=== PATIENT | male | born 1950 | race Caucasian/White ===

== ENCOUNTER 2022-06-08 09:19 | Emergency (ER) | payer OTHER, SELFPAY ==
--- NOTE | ~2022-06-08 | XR_ITS ---
EXAMINATION: XR foot RT min 3V DATE: 06/08/2022 09:47 INDICATION: Pain along the arch of the right foot post fall TECHNIQUE: Dorsoplantar, two oblique and lateral views of the right foot were obtained. COMPARISON: None. FINDINGS: Pes planus and hindfoot valgus. Small nondisplaced avulsion fracture at the distal tip of the medial malleolus. Heterotopic ossification along the dorsal aspect of the hindfoot. Polyarticular osteoarthr itis, severe at the third distal interphalangeal joint, moderate severity at the first metatarsophala ngeal joint and mild at the right ankle and remaining joints of the right foot. A few a few subarticu lar lucencies with thin sclerotic margins at the base of the fifth metatarsal, at the navicula, anter ior process of the calcaneus which could represent a osteoarthritis related geodes or chronic erosion s in the setting of gout. Moderate-sized plantar calcaneal spur. IMPRESSION: 1. Small nondisplaced likely avulsion fracture at the distal tip of the medial malleolus. 2. Pes planus and hindfoot valgus. 3. 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 4. The prominent subarticular lucencies with sclerotic margins in the mid and hindfoot which could re present osteoarthritis related geodes or chronic erosions in the setting of gout. Reviewed, dictated and finalized at location A. S [employer] IMPRESSION: 1. Small nondisplaced likely avulsion fracture at the distal tip of the medial malleolus. 2. Pes planus and hindfoot valgus. 3. 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 4. The prominent subarticular lucencies with sclerotic margins in the mid and h indfoot which could represent osteoarthritis related geodes or chronic erosions in the setting of gout.
--- NOTE | ~2022-06-08 | XR_ITS ---
Right Knee Technique: AP, lateral, and oblique views were obtained. Clinical History: Pain Findings: No fracture or dislocation is seen. Moderate tricompartmental degenerative changes present, probably worst in the lateral compartment. There is a probable 2.1 cm ovoid loose body at the milker machine ior aspect of the joint. No joint effusion is seen. Impression: Moderate tricompartmental degenerative change, with probable 2.1 cm posterior intra-articular loose b jennifer. Reviewed, dictated and finalized at location [employer] Impression: Moderate tricompartmental degenerative change, with probable 2.1 cm posterior i ntra-articular loose body.
--- NOTE | 2022-06-08 09:30 | ED.LOWEXIN ---
HPI - Extremity Injury (Lower) General Chief Complaint: Extremity Injury, Lower Stated Complaint: R knee pain, slipped on ice Time Seen by Provider: 06/08/22 09:25 History of Present Illness HPI Narrative: Patient is a 72-year-old male here for evaluation of left knee pain after a fall today. Patient states he slipped on ice and landed with his knee in flexion on the ground. He has been able to stand and walk since the accident but just notes it is painful. No head injury or loss of consciousness. He denies any numbness or tingling in the leg. He has not attempted any medication for pain. Patient is concerned because he is scheduled to get his left knee replaced in July. Related Data Allergies Allergy/AdvReac Type Severity Reaction Status Date / Time Penicillins Allergy Mild rash Unverified 06/10/14 10:20 Review of Systems Review of Systems: Gen.: Denies fevers or chills Eyes: Denies eye pain or visual change ENT: Denies congestion Respiratory: Denies shortness of breath or cough CV: Denies chest pain or palpitations GI: Denies abdominal pain nausea, emesis or diarrhea denies burning, urgency, frequency or hematuria Musculoskeletal: Reports left knee pain and foot pain. Neuro: Denies numbness, tingling, weakness or focal weakness Skin: Denies rash Except as documented, all other systems reviewed and negative Exam Narrative: Gen: Alert, oriented, no acute distress Eyes: EOMI, no icterus Pulm: Respirations even and unlabored, symmetric thorax expansion, no audible stridor or visible cyanosis CV: Regular rate per telemetry GI: No distension, no voluntary/involuntary guarding Neuro: AOx4, moves all extremities without apparent difficulty or weakness, follows commands Skin: No jaundice, no visible bruising, rashes, lesions or wounds on exposed skin MSK: Tenderness to palpation along left patella with no obvious deformity or overlying swelling. Tender to palpation along the arch of the left foot. No tenderness to palpation along medial or lateral malleoli. No tenderness palpation along tibia or fibula. No tenderness to palpation along left hip. Patient able to stand for several seconds without pain. Psych: Normal mood/affect, insight/judgement good, adequate fund of knowledge, recent/remote memory intact Course Vital Signs Vital signs: Vital Signs Temperature 97.7 F 06/08/22 09:48 Pulse Rate 103 H 06/08/22 09:48 Respiratory Rate 18 06/08/22 09:48 Blood Pressure 137/76 06/08/22 09:48 Pulse Oximetry 99 06/08/22 09:48 Oxygen Delivery Room Air 06/08/22 09:48 Temperature 97.7 F 06/08/22 09:48 Pulse Rate 103 H 06/08/22 09:48 Respiratory Rate 18 06/08/22 09:48 Blood Pressure 137/76 06/08/22 09:48 Pulse Oximetry 99 06/08/22 09:48 Oxygen Delivery Room Air 06/08/22 09:48 MDM - Extremity Injury (Lower) MDM Narrative Medical decision making narrative: 72-year-old male here for evaluation of knee pain and foot pain after a fall on ice today. His vital signs are normal and he is nontoxic-appearing, has a small abrasion to his right knee with slight bony tenderness to palpation in the area. Initially complaining of some foot pain but denies this after waiting in the ED. Plan films of the knee without acute disease but plain films of the foot show a possible avulsion fracture of the medial malleolus. Patient has no bony tenderness in this area. Recommended patient be placed in a stirrup splint for protection but he is refusing this but does not believe he has a fracture in that area. Patient understands risks of not immobilizing the fracture but is adamant that he does not want a splint. Feel this is reasonable given that he does not have any tenderness in the area of the fracture. He was discharged home to follow-up with his primary care doctor, discussed return precautions and he voiced understanding. Discharge Plan Discharge Clinical Impression: Ankle sprain and strain Patie
[2022-06-08 09:48] VITALS: BP 137/76; PULSE 103; RESP 18; TEMP 36.5; O2SAT 99
--- NOTE | 2022-06-08 10:51 | PC.NURSE ---
Patient refusing fiberglass splint. Patient states he has an allergy to fiberglass and does not wish to have a splint placed. Patient aware of potential risks of not wearing a splint but states he does not have any pain. HANNA Latham aware.
== END 2022-06-08 11:05 | disposition home or self-care (01) ==
PROVIDERS: Emergency Provider Physician Assistant
DX: S93.401A Sprain of unspecified ligament of right ankle, initial encounter (principal); W00.0XXA Fall on same level due to ice and snow, initial encounter
CPT/HCPCS: 73562; 73630; 99284